=== PATIENT | male | born 1970 | race Caucasian/White ===

== ENCOUNTER 2021-09-27 16:43 | Inpatient (IN) | payer MEDICAID, SELFPAY ==
[~2021-09-27] VITALS: Ht 172.7 cm; Wt 72.6 kg
[2021-09-27] VITALS (7 sets, daily range): BP systolic 99–127
--- NOTE | 2021-09-27 16:50 | NUR ---
RECEIVED PT IN BED #4, FROM HOME WITH CC OF NAUSEA, VOMITING AND HIGH BLOOD SUGAR PER PT. PT STATED HE LOST HIS JOB AND NEEDED SOME INSULIN HE RAN OUT. PT IS STABLE, NAD, VSS, AAOx3, TO BE FURTHER ASSESSED BY ED MD
--- NOTE | 2021-09-27 16:55 | NUR ---
ED MD AT BEDSIDE
[2021-09-27] MEDS ORDERED: NACL 0.9% 1,000 ML IV ONE (17:00)
[2021-09-27] MEDS ORDERED: INSULIN REGULAR, HUMAN 100 UNITS in NS 99 ML IV ONE ×2 (17:15)
[2021-09-27] MEDS ORDERED: INSULIN REGULAR, HUMAN 10 UNITS/0.1 ML INJ IVP ONE (17:15)
[2021-09-27] MEDS ORDERED: NACL 0.9% 3,000 ML IV ONE (17:15)
[2021-09-27 17:21] LABS: BASOPHILS % (AUTO) 0.4 % (0.0-2.0); EOSINOPHILS # (AUTO) 0.1 K/uL (0.0-0.4); HEMATOCRIT 44.3 % (36-54); LYMPHOCYTES # (AUTO) 1.2 K/uL (1.0-5.5); MEAN CORPUSCULAR HEMOGLOBIN 34 pg (27-31); MEAN CORPUSCULAR HGB CONC 34 % (32-36); MEAN CORPUSCULAR VOLUME 100 fL (79.0-98.0); MONOCYTES # (AUTO) 0.5 K/uL (0.0-1.0); MONOCYTES % (AUTO) 6.7 % (1.7-9.3); NEUTROPHILS # (AUTO) 5.8 K/uL (1.8-7.7); NEUTROPHILS % (AUTO) 75.9 % (40.0-70.0); PLATELET COUNT (AUTO) 433 K/uL (130-430); RED BLOOD CELL COUNT(AUTO) 4.42 MIL/uL (4.2-6.2); WHITE BLOOD COUNT (AUTO) 7.7 K/uL (4.8-10.8)
[2021-09-27 17:33] LABS: INR 0.9 (0.80-1.20); PROTHROMBIN TIME 9.3 SECS (9.5-12.5)
[2021-09-27 17:41] LABS: ALANINE AMINOTRANSFERASE 104 U/L (12-78); ALBUMIN 4.2 g/dL (3.4-4.8); ANION GAP 31 (5-15); ASPARTATE AMINOTRANSFERASE 54 U/L (10-37); CALCIUM 9.8 mg/dL (8.4-11.0); CHLORIDE 88 mmol/L (98-107); SODIUM SERUM 127 mmol/L (136-145); TOTAL BILIRUBIN 0.8 mg/dL (0.0-1.0); UREA NITROGEN, BLOOD 23 mg/dL (8-21)
[2021-09-27 17:45] LABS: GFR AFRICAN AMERICAN 69 mL/min (>90); GLUCOSE 547 mg/dL (70-99)
[2021-09-27 17:46] LABS: POTASSIUM 5.2 mmol/L (3.5-5.1)
[2021-09-27] MEDS ORDERED: ONDANSETRON HCL 4 MG/2 ML VIAL ONE (18:05)
[2021-09-27] MEDS ORDERED: CALCIUM GLUCONATE 1 GM/10 ML VIAL IVP ONE (18:15)
[2021-09-27] MEDS ORDERED: SODIUM POLYSTYRENE SULFONATE 15 GM/60 ML UDBTL PO ONE (18:15)
[2021-09-27] MEDS ORDERED: ONDANSETRON HCL 4 MG/2 ML VIAL IVP ONE (18:15)
[2021-09-27] MEDS ORDERED: SODIUM BICARBONATE 8.4% VIAL 50 MEQ/50 ML VIAL INJ ONE (18:15)
--- NOTE | 2021-09-27 18:30 | NUR ---
MULTIPLE IVs STARTED, INSULIN DRIP STARTED, IV SODIUM BICARB GIVEN, CALCIUM GLUCONATE DRIP STARTED, AND SODIUM BICARB DRIP. PT IS STABLE, NAD, VSS, AAOx3, AWAITING TRANSPORT TO THE FLOOR.
[2021-09-27] MEDS ORDERED: CALCIUM GLUCONATE 4.65 MEQ in NS 100 ML IV ONE (18:45)
[2021-09-27] MEDS: SODIUM BICARBONATE 8.4% JECT 150 MEQ in D5W 1,000 ML IVP SCH (18:46)
--- NOTE | 2021-09-27 18:52 | NUR ---
Admit bed requested Patient will be admitted to care of . Admitted to ICU unit. Diagnosis DKA Inpatient (Yes or No) YES Covid Status PENDING From Home (Yes or if No enter name of facility) YES
--- NOTE | 2021-09-27 19:30 | NUR ---
REPORT GIVEN TO MALGORZATA MELCHOR. PT TRANSFER STABLE, NO COMPLAINTS, TOLERATED WELL. IVs INFUSING.
--- NOTE | 2021-09-27 19:30 | NUR ---
Opening notes Received report from the STREET PHOTOGRAPHER for continuity of care. Patient was transferred from the ER to ICU in no signs of distress. Patient has IV access on the left and right AC 20 gauge. Patient was transferred to the bed safely with IVF NS bolus, sodium bicarbonate 125 mL/hr, and insulin drip @ 7 unit/hr. Patient is AAOx4 with clear speech. Patient's vital signs blood pressure 127/73, heart rate 83, and SPO2 99%, room air. Bed is locked and in lowest position, fall and safety precautions is in place.
--- NOTE | 2021-09-27 20:38 | NUR ---
BLOOD SUGAR Checked patient's blood sugar. Blood sugar is 222, titrated insulin drip to 2 units.
[2021-09-27] MEDS ORDERED: INSULIN REGULAR, HUMAN 100 UNITS in NS 99 ML IV PRN ×2 (21:15)
--- NOTE | 2021-09-27 21:27 | NUR ---
CONSULTS PAGED 2126 - DR. RICHARDS - SPOKE WITH MICHAELA AT THE EXCHANGE TO LEAVE MESSAGE FOR NEW AM CONSULT. 2131 - DR. CROUCH - SPOKE WITH KRISHNA AT THE EXCHANGE TO LEAVE MESSAGE FOR NEW AM CONSULT.
[2021-09-28] VITALS (12 sets, daily range): BP systolic 91–115
[2021-09-28] MEDS ORDERED: SODIUM BICARBONATE 8.4% JECT 50 MEQ/50 ML SYRINGE ONE (05:25)
[2021-09-28] MEDS: SODIUM BICARBONATE 8.4% JECT 150 MEQ in D5W 1,000 ML IVP SCH (05:39)
[2021-09-28 06:44] LABS: BASOPHILS % (AUTO) 0.5 % (0.0-2.0); EOSINOPHILS # (AUTO) 0.1 K/uL (0.0-0.4); EOSINOPHILS % (AUTO) 1.7 % (0.0-4.0); HEMATOCRIT 35.2 % (36-54); HEMOGLOBIN 12.1 g/dL (14.0-18.0); LYMPHOCYTES # (AUTO) 1.2 K/uL (1.0-5.5); MEAN CORPUSCULAR HEMOGLOBIN 33 pg (27-31); MEAN CORPUSCULAR HGB CONC 34 % (32-36); MEAN CORPUSCULAR VOLUME 96 fL (79.0-98.0); MONOCYTES # (AUTO) 0.5 K/uL (0.0-1.0); MONOCYTES % (AUTO) 7.5 % (1.7-9.3); NEUTROPHILS # (AUTO) 4.7 K/uL (1.8-7.7); NEUTROPHILS % (AUTO) 71.3 % (40.0-70.0); PLATELET COUNT (AUTO) 286 K/uL (130-430); RED BLOOD CELL COUNT(AUTO) 3.68 MIL/uL (4.2-6.2); RED CELL DISTRIBUTION WIDTH 13.4 % (9.0-15.0); WHITE BLOOD COUNT (AUTO) 6.5 K/uL (4.8-10.8)
--- NOTE | 2021-09-28 06:50 | NUR ---
Dr. Tam is at the bedside assessing the patient, verbal report given. No new orders given.
[2021-09-28 06:56] LABS: ALBUMIN 2.9 g/dL (3.4-4.8); CALCIUM 8.6 mg/dL (8.4-11.0); CREATININE 0.97 mg/dL (0.55-1.30); POTASSIUM 3.4 mmol/L (3.5-5.1); TOTAL BILIRUBIN 0.6 mg/dL (0.0-1.0)
--- NOTE | 2021-09-28 07:50 | NUR ---
AM ASSESSMENT PT ON INSULIN DRIP AT 3 UNIT/HR, ALERT, ORIENTED, DENIES BODY DISCOMFORT, TRAY SERVED FOR BREAKFAST, PT VERBALIZED BASIC NEEDS AND ATTENDED, CONTINUE TO MONITOR PT.
[2021-09-28] MEDS ORDERED: MUPIROCIN 2% TOPICAL OINTMENT 22 GM NS PRN (08:15)
[2021-09-28] MEDS ORDERED: DOCUSATE SODIUM 100 MG CAPSULE PO PRN (08:15)
[2021-09-28] MEDS ORDERED: ONDANSETRON HCL 4 MG/2 ML VIAL IVP PRN (08:15)
[2021-09-28] MEDS ORDERED: ACETAMINOPHEN 325 MG TABLET PO PRN (08:15)
[2021-09-28] MEDS ORDERED: MAGNESIUM SULFATE 50 ML IV PRN (08:15)
[2021-09-28] MEDS ORDERED: POTASSIUM CHLORIDE 20 MEQ TAB.PRT.SR PO PRN (08:15)
[2021-09-28] MEDS ORDERED: COMMUNICATION ORDER XX ONE (10:45)
[2021-09-28] MEDS ORDERED: INSULIN LISPRO SLIDING SCALE 100 UNITS/ML VIAL (humaLOG) SUBCUT PRN ×2 (10:45→11:45)
[2021-09-28] MEDS ORDERED: INSULIN NPH 100 UNITS/ML 10 ML VIAL SUBCUT ONE (10:45)
--- NOTE | 2021-09-28 11:00 | NUR ---
MEDS. PT TO BE ON NPH INSULIN, HE STATED THAT HE HAD TAKEN THAT BEFORE BUT DID NOT DO ANYTHING TO HIS BODY. CALLED UP DR AMBROSE AND REPORTED THAT PT DID NOT BELIEVE THAT THIS WILL WORK FOR HIS DIABETES, HE PREFERRED TO USE REGULAR INSULIN. WENT TO SPEAK TO PATIENT AND GIVEN HIM THE PLAN OF CARE OF DR GOEL TO MANAGE HIS DIABETES, PT AGREED TO THE PLAN.
--- NOTE | 2021-09-28 15:54 | NUR ---
Lacrosse Player [employer] OFFICER Una responded to a referral for social service support generated from Case management DC assessment [employer] OFFICER Una met with patient at bedside. NAV[employer]SP[employer] OFFICER completed introductions and reason for referral. Patient was laying bed, alert and orientated x4. He stated he was open to talking Patient stated he is currently living in his RV with his girlfriend Nena Cason . Social History- Patient resides with his girlfriend and their pets. He shared he has family, and will stay with them for short periods of time. He shared he was previously employed as a [employer], but lost his job in October 2020. Medical Care- Patient shared he has been rationing his diabetes meds due to high cost and lack of medical insurance. He shared his medical insurance from his former employer was only valid till the end of 2020. He shared he applied for medi-norris in July but was denied. Mental Health- He denies any previous mental health diagnosis, and declined mental health resources NAVY AIRSP[employer] OFFICER encouraged patient to utilize [facility] and low cost clinic resources to establish a PCP to address his health needs. Patient was provided with the following resources -Outpatient health clinic list ([place] and [facility]) - Diabetes Resource list - Interim housing list - [facility] [facility] [place] - Homelessness Prevention Program
--- NOTE | 2021-09-28 16:26 | NUR ---
Production Gear Cutter LISSETTE Una contacted [facility] to inquire into status of patient's Medi-norris application so that the patient can be notified of any needed documents. A voicemail was left requesting a call back.
--- NOTE | 2021-09-28 17:00 | NUR ---
NURSING PT MADE AWARE OF STATUS CHANGE. WILL TRANSFER PT TO MED SURG DEPT [facility].
[2021-09-28 17:31] LABS: BLOOD, URINE NEGATIVE (NEGATIVE); CLARITY/URINE CLOUDY (CLEAR); COLOR,URINE YELLOW (YELLOW); GLUCOSE,URINE TRACE (NEGATIVE); KETONES,URINE 1+ (NEGATIVE); LEUKOCYTE ESTERASE ,URINE NEGATIVE (NEGATIVE); NITRITE, URINE NEGATIVE (NEGATIVE); PH,URINE 6.5 (5.0-8.0); PROTEIN URINE 1+ (NEGATIVE)
[2021-09-28] MEDS: INSULIN NPH 100 UNITS/ML 10 ML VIAL SUBCUT SCH (17:45)
[2021-09-28] MEDS: INSULIN Lispro 100 UNITS/ML VIAL (humaLOG) SUBCUT SCH (17:46)
[2021-09-28 17:50] LABS: BARBITURATE, URINE NEGATIVE (NEG <=200); BENZODIAZEPINE, URINE NEGATIVE (NEG <=150); CANNABINOID, URINE POSITIVE (NEG <=50); COCAINE, URINE NEGATIVE (NEG <=150); METHAMPHETAMINES SCREEN,URINE NEGATIVE (NEG <=500); OPIATE, URINE NEGATIVE (NEG <=100); PHENCYCLIDINE SCREEN,URINE NEGATIVE (NEG <=25); UR TRICYCLIC ANTIDEPRESSANTS NEGATIVE (NEG <=300); URINE AMPHETAMINE NEGATIVE (NEG <=500); URINE METHADONE NEGATIVE (NEG <=200); URINE OXYCODONE SCREEN NEGATIVE (NEG <=100); URINE PROPOXYPHENE SCREEN NEGATIVE (NEG <=300)
[2021-09-28 17:59] LABS: BILIRUBIN,URINE NEGATIVE (NEGATIVE); UROBILINOGEN,URINE >=8 (0.2-1.0)
[2021-09-28 18:01] LABS: BACTERIA,URINE FEW /HPF (None Seen); MUCUS,URINE None Seen /LPF (None Seen); OTHER CRYSTALS,URINE MANY SULFA /HPF (None Seen); RBC,URINE NONE SEEN /HPF (0-3); WBC,URINE NONE SEEN /HPF (0-3)
--- NOTE | 2021-09-28 20:30 | NUR ---
PT ADMITTED TO MED SURG. PT AOX4 ABLE TO MAKE NEEDS KNOWN. RR EVEN AND UNLABORED ON RA. PT AMBULATORY. SKIN INTACT. IV IN JASBIR AC PATENT. PT EDUCATED TO USE CALL LIGHT IF HE NEEDS ASSISTANCE. ALL NEEDS MEET AT THIS TIME. WILL CONTINUE TO MONITOR.
[2021-09-28] MEDS: ZOLPIDEM TARTRATE 5 MG TABLET PO PRN (23:00)
[2021-09-29 00:05] VITALS: BP_SYST 104
[2021-09-29] MEDS: INSULIN Lispro 100 UNITS/ML VIAL (humaLOG) SUBCUT SCH ×3 (06:42→17:00)
[2021-09-29] MEDS: INSULIN NPH 100 UNITS/ML 10 ML VIAL SUBCUT SCH (06:43)
--- NOTE | 2021-09-29 07:00 | NUR ---
pt bs 96. pt ate 2 sandwiches, 2 puddings, 1 apple juice an hour prior. pt refused any insulin at 0630
[2021-09-29 07:22] LABS: BASOPHILS % (AUTO) 0.1 % (0.0-2.0); EOSINOPHILS % (AUTO) 0.4 % (0.0-4.0); HEMATOCRIT 38.2 % (36-54); HEMOGLOBIN 13.1 g/dL (14.0-18.0); LYMPHOCYTES # (AUTO) 1.3 K/uL (1.0-5.5); LYMPHOCYTES % (AUTO) 17.1 % (20.5-51.5); MEAN CORPUSCULAR HEMOGLOBIN 33 pg (27-31); MEAN CORPUSCULAR HGB CONC 34 % (32-36); MEAN CORPUSCULAR VOLUME 96 fL (79.0-98.0); MONOCYTES # (AUTO) 0.6 K/uL (0.0-1.0); MONOCYTES % (AUTO) 8.1 % (1.7-9.3); NEUTROPHILS # (AUTO) 5.5 K/uL (1.8-7.7); NEUTROPHILS % (AUTO) 74.3 % (40.0-70.0); PLATELET COUNT (AUTO) 288 K/uL (130-430); RED BLOOD CELL COUNT(AUTO) 3.98 MIL/uL (4.2-6.2); RED CELL DISTRIBUTION WIDTH 13.5 % (9.0-15.0); WHITE BLOOD COUNT (AUTO) 7.4 K/uL (4.8-10.8)
[2021-09-29 08:00] VITALS: BP_SYST 103
[2021-09-29] MEDS: INSULIN GLARGINE 100 UNITS/ML 10 ML VIAL SUBCUT SCH ×2 (09:38→20:39)
[2021-09-29 10:01] LABS: CALCIUM 7.7 mg/dL (8.4-11.0); CREATININE 0.79 mg/dL (0.55-1.30); POTASSIUM 3.2 mmol/L (3.5-5.1)
[2021-09-29] MEDS: LORazepam 2 MG/ML VIAL IVP PRN ×3 (12:11→21:20)
--- NOTE | 2021-09-29 12:21 | NUR ---
PT C/O ANXIETY, MEDICATED WITH PRN ATIVAN PER MD ORDER. ADMINISTERED PRN POTASSIUM FOR K+ 3.2. PT EATING LUNCH, DENIES PAIN/DISCOMFORT. CALL LIGHT IN REACH, SAFETY MEASURES IN PLACE. Addendum: 09/29/21 at 1225 by [place] [employer] yarn sizer HELD LISPRO, BG 82. PATIENT PROVIDED LUNCH, DENIES S/S OF HYPOGLYCEMIA.
[2021-09-29 12:26] VITALS: BP_SYST 99
[2021-09-29 16:00] VITALS: BP_SYST 100
--- NOTE | 2021-09-29 18:45 | NUR ---
PATIENT IS RESTING IN BED, AAO x4, DENIES PAIN/DISCOMFORT. RESPIRATIONS EVEN AND UL ON RA. SL TO LAC, INTACT AND PATENT, WNL. ALL NEEDS MET. NO SIGNIFICANT CHANGES NOTED. BED IN LOWEST POSITION, CALL LIGHT IN REACH, WILL CONT TO MONITOR AND ENDORSE TO PM NURSE.
--- NOTE | 2021-09-29 19:15 | NUR ---
REPORT GIVEN TO PM NURSE FOR CONTINUITY OF CARE.
--- NOTE | 2021-09-29 20:39 | NUR ---
PT REFUSED HUMULIN R. BLOOD SUGAR 182. WILL GIVE LANTUS 15UNITS.
[2021-09-29 20:56] VITALS: BP_SYST 103
[2021-09-29] MEDS: ZOLPIDEM TARTRATE 5 MG TABLET PO PRN (21:12)
[2021-09-29] MEDS ORDERED: INSU100V SQ (22:53)
[2021-09-29] MEDS ORDERED: INSU100V9 SQ (22:53)
[2021-09-30] VITALS: BP_SYST 99
[2021-09-30] MEDS: INSULIN Lispro 100 UNITS/ML VIAL (humaLOG) SUBCUT SCH ×3 (07:23→17:00)
[2021-09-30 08:00] VITALS: BP_SYST 102
--- NOTE | 2021-09-30 08:00 | NUR ---
RECEIVED REPORT FROM PM NURSE, PATIENT IS RESTING IN BED, AAO x4, DENIES PAIN/DISCOMFORT. RESPIRATIONS EVEN AND UL ON RA. SL TO LAC, IV SITE WNL. SAFETY MEASURES IN PLACE, CALL LIGHT WITHIN REACH. ALL NEEDS MET AT THIS TIME.
[2021-09-30 08:33] LABS: CALCIUM 8.3 mg/dL (8.4-11.0); CREATININE 0.66 mg/dL (0.55-1.30)
[2021-09-30] MEDS: LORazepam 2 MG/ML VIAL IVP PRN (08:57)
[2021-09-30 09:02] LABS: BASOPHILS % (AUTO) 0.5 % (0.0-2.0); EOSINOPHILS # (AUTO) 0.2 K/uL (0.0-0.4); EOSINOPHILS % (AUTO) 4.7 % (0.0-4.0); HEMATOCRIT 35.1 % (36-54); HEMOGLOBIN 11.8 g/dL (14.0-18.0); LYMPHOCYTES # (AUTO) 1.6 K/uL (1.0-5.5); LYMPHOCYTES % (AUTO) 37.2 % (20.5-51.5); MEAN CORPUSCULAR HEMOGLOBIN 33 pg (27-31); MEAN CORPUSCULAR HGB CONC 34 % (32-36); MEAN CORPUSCULAR VOLUME 98 fL (79.0-98.0); MONOCYTES # (AUTO) 0.3 K/uL (0.0-1.0); MONOCYTES % (AUTO) 6.4 % (1.7-9.3); NEUTROPHILS # (AUTO) 2.3 K/uL (1.8-7.7); NEUTROPHILS % (AUTO) 51.2 % (40.0-70.0); PLATELET COUNT (AUTO) 205 K/uL (130-430); RED BLOOD CELL COUNT(AUTO) 3.59 MIL/uL (4.2-6.2); RED CELL DISTRIBUTION WIDTH 13.3 % (9.0-15.0); WHITE BLOOD COUNT (AUTO) 4.4 K/uL (4.8-10.8)
[2021-09-30] MEDS: INSULIN GLARGINE 100 UNITS/ML 10 ML VIAL SUBCUT SCH (09:04)
[2021-09-30 09:22] LABS: POTASSIUM 3.7 mmol/L (3.5-5.1)
[2021-09-30 12:00] VITALS: BP_SYST 105
--- NOTE | 2021-09-30 12:00 | NUR ---
ERROR, PT IS ON ROOM AIR. Addendum: 09/30/21 at 1231 by [place] crew caller Amended: Links added.
--- NOTE | 2021-09-30 17:49 | NUR ---
Dietitian Recommendations * Continue [facility] diet * HS snacks (turkey sandwich, 4 oz milk) daily * Double portions of proteins/vegetables TID * RD provided DM MIRANDAT ANA PAULA, JAKE Please refer to Nutrition Assessment for details. Addendum: 09/30/21 at [address] Amended: Links added.
[2021-09-30 17:56] VITALS: BP_SYST 122
[2021-09-30 18:37] VITALS: BP_SYST 122
--- NOTE | 2021-09-30 18:59 | NUR ---
DISCHARGE INSTRUCTIONS GIVEN AND EXPLAINED TO PATIENT, PRESCRIPTIONS GIVEN TO PATIENT. PATIENT VERBALIZED UNDERSTANDING OF ALL DISCHARGE INSTRUCTIONS/EDUCATION/PRESCRIPTIONS/FOLLOW UP APPT. PT STATES HE WILL GO TO PHARMACY TONIGHT TO DIRECTORY COMPILER PRESCRIPTIONS. IV SITE TO LAC REMOVED, CATH INTACT, NO BLEEDING NOTED. TRANSPORTATION SCHEDULED WITH PASTE MAKER AND TRANSPORT WILL ARRIVE TO PICK PATIENT UP AT [phone]. PT MADE AWARE. SIGNED DISCHARGE PACKET PLACED IN CHART. PT INSTRUCTED TO TAKE MEDICATIONS DIRECTED AND FOLLOW UP WITH PCP IN 3 DAYS. PATIENT RESTING IN BED, AAO x4, RESPIRATIONS EVEN AND UL ON RA, DENIES PAIN/DISCOMFORT. WILL ENDORSE TO PM NURSE.
--- NOTE | 2021-09-30 19:25 | NUR ---
PATIENT DISCHARGED HOME WITH ALL BELONGINGS.
[2021-09-30] MEDS ORDERED: INSULIN GLARGINE 100 UNITS/ML 10 ML VIAL SUBCUT SCH (21:00)
== END 2021-09-30 19:25 | disposition home or self-care (01) | DRG 420 ==
LOC: SED 16:43 → SIC 18:48 → SMU 09-28 17:48
PROVIDERS: ADMIT General Practice; ATTEND General Practice
DX: E11.10 Type 2 diabetes mellitus with ketoacidosis without coma (principal); N17.0 Acute kidney failure with tubular necrosis; E87.1 Hypo-osmolality and hyponatremia; E87.5 Hyperkalemia; T38.3X6A Underdosing of insulin and oral hypoglycemic [antidiabetic] drugs, initial encounter; Z20.822 Contact with and (suspected) exposure to COVID-19; R74.01 Elevation of levels of liver transaminase levels; E11.649 Type 2 diabetes mellitus with hypoglycemia without coma; Y92.89 Other specified places as the place of occurrence of the external cause; Z83.3 Family history of diabetes mellitus; Z56.0 Unemployment, unspecified; Z79.4 Long term (current) use of insulin
CPT/HCPCS: 36415; 36600; 71045; 80048; 80053; 80307; 81000; 82803-TC; 82962; 83036; 83605; 83735; 84484; 85025; 85610-TC; 85730-TC; 87040; 87081; 93005; 96374; 96375; 99285; J0610; J1815; J2060; J2405; J7060

== ENCOUNTER 2021-11-12 20:08 | Inpatient (IN) | payer SELFPAY ==
[~2021-11-12] VITALS: Ht 172.7 cm; Wt 63.0 kg
[~2021-11-12 20:08] MED LIST: INSU100V SQ; INSU100V9 SQ
[2021-11-12 20:20] VITALS: BP_SYST 100
--- NOTE | 2021-11-12 20:22 | NUR ---
Patient to ER bed 8 to gown for evaluation. Side rails up. Report given to Jamil MCGARRY.
--- NOTE | 2021-11-12 20:55 | NUR ---
pt presented to the er with complaints of nausea, vomitting and abdominal pain 11/13. pt was driven to er by friend from home. pt vomitted dark brown/moira emisis upon i entered room. pt last meal was humus and pizza last night. pt has hx of dm takes insulin. glucose reading was +600 at 19:09
[2021-11-12 21:06] LABS: BASOPHILS # (AUTO) 0.1 K/uL (0.0-0.2); BASOPHILS % (AUTO) 0.8 % (0.0-2.0); EOSINOPHILS % (AUTO) 0.1 % (0.0-4.0); HEMATOCRIT 47.3 % (36-54); HEMOGLOBIN 15.6 g/dL (14.0-18.0); LYMPHOCYTES # (AUTO) 1.3 K/uL (1.0-5.5); LYMPHOCYTES % (AUTO) 7.2 % (20.5-51.5); MEAN CORPUSCULAR HEMOGLOBIN 33 pg (27-31); MEAN CORPUSCULAR HGB CONC 33 % (32-36); MEAN CORPUSCULAR VOLUME 99 fL (79.0-98.0); MONOCYTES # (AUTO) 0.8 K/uL (0.0-1.0); MONOCYTES % (AUTO) 4.7 % (1.7-9.3); NEUTROPHILS # (AUTO) 15.4 K/uL (1.8-7.7); NEUTROPHILS % (AUTO) 87.2 % (40.0-70.0); PLATELET COUNT (AUTO) 374 K/uL (130-430); RED BLOOD CELL COUNT(AUTO) 4.78 MIL/uL (4.2-6.2); RED CELL DISTRIBUTION WIDTH 13.4 % (9.0-15.0); WHITE BLOOD COUNT (AUTO) 17.7 K/uL (4.8-10.8)
[2021-11-12] MEDS ORDERED: ONDANSETRON HCL 4 MG/2 ML VIAL IVP ONE (21:15)
[2021-11-12] MEDS ORDERED: NACL 0.9% 1,000 ML IV ONE (21:15)
[2021-11-12] MEDS ORDERED: ONDANSETRON HCL 4 MG/2 ML VIAL ONE (22:01)
--- NOTE | 2021-11-12 22:01 | NUR ---
Dr. Alvarado at bedside. Second dose of Zofran 4 mg IVP given per VO Dr. Alvarado.
[2021-11-12 22:06] LABS: BILIRUBIN,URINE 1+ (NEGATIVE); BLOOD, URINE NEGATIVE (NEGATIVE); CLARITY/URINE CLEAR (CLEAR); COLOR,URINE YELLOW (YELLOW); GLUCOSE,URINE 3+ (NEGATIVE); KETONES,URINE 3+ (NEGATIVE); LEUKOCYTE ESTERASE ,URINE NEGATIVE (NEGATIVE); NITRITE, URINE NEGATIVE (NEGATIVE); PH,URINE 5.5 (5.0-8.0); PROTEIN URINE NEGATIVE (NEGATIVE); UROBILINOGEN,URINE 0.2 (0.2-1.0)
[2021-11-12] MEDS ORDERED: PANTOPRAZOLE SODIUM 40 MG/VIAL (PROTONIX) IVP ONE (22:15)
[2021-11-12 23:07] LABS: POTASSIUM 5.9 mmol/L (3.5-5.1)
[2021-11-12 23:09] LABS: CALCIUM 10.1 mg/dL (8.4-11.0)
[2021-11-12 23:10] LABS: ALBUMIN 4.6 g/dL (3.4-4.8); CREATININE 1.8 mg/dL (0.55-1.30); TOTAL BILIRUBIN 0.7 mg/dL (0.0-1.0)
[2021-11-12] MEDS ORDERED: INSULIN REGULAR, HUMAN 100 UNITS in NS 99 ML IV ONE ×2 (23:15)
[2021-11-12] MEDS ORDERED: INSULIN REGULAR, HUMAN 10 UNITS/0.1 ML INJ ONE (23:28)
[2021-11-13] VITALS (20 sets, daily range): BP systolic 104–133
[2021-11-13] MEDS ORDERED: METOCLOPRAMIDE HCL 10 MG/2 ML VIAL IVP ONE
[2021-11-13] MEDS ORDERED: DEXTROSE 50% JECT 50 ML DISP.SYRIN IVP PRN (00:30)
[2021-11-13] MEDS ORDERED: INSULIN REGULAR, HUMAN 100 UNITS in NS 99 ML IV PRN ×6 (00:30→03:30)
[2021-11-13] MEDS ORDERED: INSU100V SQ (01:02)
[2021-11-13] MEDS ORDERED: INSU100V9 SQ (01:02)
--- NOTE | 2021-11-13 01:08 | NUR ---
checked pt glucose reading at bed side. glucometer still giving reading of "high" indicating a 600+glucose reading. provided Dr Leung with reading information recieved verbal order from Dr Leung to continue on 4ml/hr drip of insulin. will recheck glucose in 1 hour. pt resting in bed with eyes closed, bed is lowered and locked and rails are up
--- NOTE | 2021-11-13 01:20 | NUR ---
Admit bed requested Patient will be admitted to care of Dr. Palma. Admitted to ICU unit. Diagnosis DKA Inpatient (Yes or No) NO Observation (Yes or No) NO Orientation concerns or request close to nursing station (Yes or No) NO Covid Status NEGATIVE On vent or bipap NO Isolation requirements NO Needs a sitter NO From Home (Yes or if No enter name of facility) YES Requires Dialysis (Yes or No) NO Med Rec Completed (Yes of No) YES
--- NOTE | 2021-11-13 02:08 | NUR ---
Blood sugar 453 mg/dL. Insulin drip rate increased to 5 Units/hr per protocol. Pt resting quietly, easily awakened, AAOx4. Denies c/o pain or discomfort and no needs verbalized at this time. VSS, NAD. 750 mL clear and yellow urine emptied from urinal.
--- NOTE | 2021-11-13 02:50 | NUR ---
assessed pt vitals signs, pt is sleeping in bed, vs within normal limits. unable to assess pt pain bcs pt is asleep and resting. bed is lowered and locked with bed rails up. will continue to monitor
--- NOTE | 2021-11-13 03:10 | NUR ---
Accucheck 422 mg/dL. Insulin Drip rate increased to 7 Units/hr per Insulin Drip Protocol Algorithm #2.
--- NOTE | 2021-11-13 04:19 | NUR ---
assessed pt. blood glucose 390 continued on protocol. no acute changes in pt vital signs. vitals are within normal limits. pt in bed resting comfortably with bed lowered and locked, rails up. pt denies pain. AOx3
--- NOTE | 2021-11-13 04:46 | NUR ---
Note fritz in EDM - 11/13/21 at 0639 by JOSE ANTONIOJ Patient will be admitted to care of Dr. Palma. Admitted to ICU unit. Will go to room 1. Belongings list completed. Complete and up to date summary report printed. SBAR report to be given at bedside with opportunity for questions.
--- NOTE | 2021-11-13 05:00 | NUR ---
0500 ADMITTED PT FROM ER FOR DKA A&OX4 AMBULATORY ON ROOM AIR SKIN INTACT, WITH INSULIN DRIP RUNNING AT 6 UNITS VIA LT AC. CONNECTED TO BEDSIDE MONITOR, AND CHG BATH DONE, BS CHECKED 387-DUE COVERGAE GIVEN.
--- NOTE | 2021-11-13 05:18 | NUR ---
Patient will be admitted to care of Dr Palma . Admitted to ICU unit. Will go to room 1. Belongings list completed. Complete and up to date summary report printed. SBAR report to be given to MALGORZATA Antonio at bedside with opportunity for questions.
[2021-11-13] MEDS ORDERED: MAGNESIUM SULFATE 50 ML IV PRN (06:15)
[2021-11-13] MEDS ORDERED: MUPIROCIN 2% TOPICAL OINTMENT 22 GM NS PRN (06:15)
[2021-11-13] MEDS ORDERED: ONDANSETRON HCL 4 MG/2 ML VIAL IVP PRN (06:15)
[2021-11-13] MEDS ORDERED: LORazepam 2 MG/ML VIAL IVP PRN (06:15)
[2021-11-13] MEDS ORDERED: NALOXONE HCL 0.4 MG/ML AMP (NARCAN) IVP PRN ×2 (06:15)
[2021-11-13] MEDS ORDERED: ACETAMINOPHEN 325 MG TABLET PO PRN (06:15)
[2021-11-13] MEDS ORDERED: DOCUSATE SODIUM 100 MG CAPSULE PO PRN (06:15)
[2021-11-13] MEDS ORDERED: MORPHINE 2 MG/ML INJ. SYRINGE IVP PRN ×2 (06:15)
[2021-11-13] MEDS ORDERED: ZOLPIDEM TARTRATE 5 MG TABLET PO PRN (06:15)
[2021-11-13] MEDS ORDERED: POTASSIUM CHLORIDE 20 MEQ TAB.PRT.SR PO PRN (06:15)
[2021-11-13] MEDS: NACL 0.9% 1,000 ML IV SCH ×3 (06:55→16:50)
--- NOTE | 2021-11-13 06:57 | NUR ---
0610 S/B DR RAY CLARIFIED HIS ORDER OF DKA PROTOCOL OF NO FLUIDS,LABS AND ON A DIET PT ON INSULIN DRIP AND HE SAID [facility]. QUESTIONING ME WHY NO LABS OREDERED AND TOLD HIM I AM NOT THE ONE WHO GET HIS ORDER IN ER PATIENT JUST ROLLED IN JUST AN HOUR AGO AND HE JUST LITERALLY SETTLED COMFORTABLY IN BED . WENT AND SEE PATIENT AND PUT HIS ORDER IN.
[2021-11-13 07:12] LABS: CREATININE 1.86 mg/dL (0.55-1.30); POTASSIUM 4.3 mmol/L (3.5-5.1)
[2021-11-13 07:17] LABS: BASOPHILS # (AUTO) 0.1 K/uL (0.0-0.2); BASOPHILS % (AUTO) 0.4 % (0.0-2.0); HEMATOCRIT 45.5 % (36-54); HEMOGLOBIN 15.7 g/dL (14.0-18.0); LYMPHOCYTES # (AUTO) 1.6 K/uL (1.0-5.5); LYMPHOCYTES % (AUTO) 10.7 % (20.5-51.5); MEAN CORPUSCULAR HEMOGLOBIN 33 pg (27-31); MEAN CORPUSCULAR HGB CONC 35 % (32-36); MEAN CORPUSCULAR VOLUME 95 fL (79.0-98.0); MONOCYTES # (AUTO) 0.8 K/uL (0.0-1.0); MONOCYTES % (AUTO) 5.2 % (1.7-9.3); NEUTROPHILS # (AUTO) 12.7 K/uL (1.8-7.7); NEUTROPHILS % (AUTO) 83.7 % (40.0-70.0); PLATELET COUNT (AUTO) 371 K/uL (130-430); RED BLOOD CELL COUNT(AUTO) 4.79 MIL/uL (4.2-6.2); RED CELL DISTRIBUTION WIDTH 13.1 % (9.0-15.0); WHITE BLOOD COUNT (AUTO) 15.2 K/uL (4.8-10.8)
--- NOTE | 2021-11-13 07:17 | NUR ---
REPORT TO LENA MCGARRY FOR CONTINUITY OF CARE.
--- NOTE | 2021-11-13 07:36 | NUR ---
INITIAL SHIFT REPORT RECEIVED FROM NIGHT RN FOR CONTINUATION OF CARE
[2021-11-13] MEDS: PIPERACILLIN/TAZO 3.375/DEX-IS 50 ML IV SCH ×4 (07:49→23:25)
--- NOTE | 2021-11-13 08:50 | NUR ---
UPDATE INFORMED MD EARL-SAYED OF PT'S CO2 23, BS 340. PER MD EARL-SAYED CONTINUE INSULIN DRIP OF 5U/HR.
[2021-11-13] MEDS: HEPARIN SODIUM,PORCINE 5,000 UNITS/ML VIAL SUBCUT SCH ×2 (09:20→23:27)
[2021-11-13 11:59] LABS: CALCIUM 8.6 mg/dL (8.4-11.0); CREATININE 1.46 mg/dL (0.55-1.30); POTASSIUM 4.5 mmol/L (3.5-5.1)
--- NOTE | 2021-11-13 12:29 | NUR ---
HIGH ALERT NOTE: Called Dr. EARL-SAYED back at identified within the medical roster to verify physician authenticity; 25U OF NPH INSULIN ORDERED
[2021-11-13] MEDS ORDERED: INSULIN NPH 100 UNITS/ML 10 ML VIAL SUBCUT ONE (13:00)
[2021-11-13] MEDS ORDERED: INSULIN LISPRO SLIDING SCALE 100 UNITS/ML VIAL (humaLOG) SUBCUT PRN (14:30)
--- NOTE | 2021-11-13 16:59 | NUR ---
ASSESSED DR EARL-SAYED AT THE PT'S BEDSIDE. ASSESSED & ORDERED TO TURN OFF INSULIN DRIP. BS CHECKED AT 1600 & MD ASKED TO DISREGARD BS CHECK AT 1700.
--- NOTE | 2021-11-13 19:11 | NUR ---
Assumed pt care report received from Evelia MCGARRY. Updates at the bedside met pt awake alert oriented vital signs stable afebrile denies pain, education on care plan, he verbalized understanding call light at reach and bed in low position. Will continue to monitor and treat as per care plan.
--- NOTE | 2021-11-13 19:22 | NUR ---
ENDORSEMENT BEDSIDE SHIFT REPORT GIVEN TO NIGHT RN FOR CONTINUITY OF CARE
[2021-11-13] MEDS: INSULIN NPH 100 UNITS/ML 10 ML VIAL SUBCUT SCH (21:54)
[2021-11-14] VITALS (13 sets, daily range): BP systolic 100–121
[2021-11-14 00:11] LABS: BARBITURATE, URINE NEGATIVE (NEG <=200); BENZODIAZEPINE, URINE NEGATIVE (NEG <=150); CANNABINOID, URINE NEGATIVE (NEG <=50); COCAINE, URINE NEGATIVE (NEG <=150); METHAMPHETAMINES SCREEN,URINE POSITIVE (NEG <=500); OPIATE, URINE NEGATIVE (NEG <=100); PHENCYCLIDINE SCREEN,URINE NEGATIVE (NEG <=25); UR TRICYCLIC ANTIDEPRESSANTS NEGATIVE (NEG <=300); URINE AMPHETAMINE POSITIVE (NEG <=500); URINE METHADONE NEGATIVE (NEG <=200); URINE OXYCODONE SCREEN NEGATIVE (NEG <=100); URINE PROPOXYPHENE SCREEN NEGATIVE (NEG <=300)
[2021-11-14] MEDS: NACL 0.9% 1,000 ML IV SCH (00:44)
[2021-11-14 05:58] LABS: BASOPHILS # (AUTO) 0.1 K/uL (0.0-0.2); BASOPHILS % (AUTO) 0.5 % (0.0-2.0); EOSINOPHILS # (AUTO) 0.2 K/uL (0.0-0.4); EOSINOPHILS % (AUTO) 1.3 % (0.0-4.0); HEMATOCRIT 38.8 % (36-54); HEMOGLOBIN 13.1 g/dL (14.0-18.0); LYMPHOCYTES # (AUTO) 2.3 K/uL (1.0-5.5); LYMPHOCYTES % (AUTO) 19.5 % (20.5-51.5); MEAN CORPUSCULAR HEMOGLOBIN 32 pg (27-31); MEAN CORPUSCULAR HGB CONC 34 % (32-36); MEAN CORPUSCULAR VOLUME 96 fL (79.0-98.0); MONOCYTES # (AUTO) 0.7 K/uL (0.0-1.0); MONOCYTES % (AUTO) 5.6 % (1.7-9.3); NEUTROPHILS # (AUTO) 8.6 K/uL (1.8-7.7); NEUTROPHILS % (AUTO) 73.1 % (40.0-70.0); PLATELET COUNT (AUTO) 254 K/uL (130-430); RED BLOOD CELL COUNT(AUTO) 4.06 MIL/uL (4.2-6.2); RED CELL DISTRIBUTION WIDTH 13.2 % (9.0-15.0); WHITE BLOOD COUNT (AUTO) 11.8 K/uL (4.8-10.8)
[2021-11-14 06:15] LABS: CREATININE 1.05 mg/dL (0.55-1.30); POTASSIUM 3.5 mmol/L (3.5-5.1)
[2021-11-14] MEDS: PIPERACILLIN/TAZO 3.375/DEX-IS 50 ML IV SCH ×2 (06:32→13:28)
[2021-11-14] MEDS: INSULIN Lispro 100 UNITS/ML VIAL (humaLOG) SUBCUT SCH ×2 (06:47→12:25)
--- NOTE | 2021-11-14 07:12 | NUR ---
Blood sugar this AM was 44, pt asymptomatic awake alert oriented D50 ivp given blood sugar rechecked 147 and breakfast provided. Also Dr Neumann SAYED notified via phone message to call the unit for pt's condition updates.
--- NOTE | 2021-11-14 07:31 | NUR ---
Change of shift report given to YENIFER RN as at this time no changes in pt's condition vitals signs stable afebrile and no complain all through the shift.
[2021-11-14] MEDS ORDERED: INSU100I20 SQ (08:46)
[2021-11-14] MEDS ORDERED: LEVO500T90 PO (08:50)
[2021-11-14] MEDS ORDERED: PRO40 PO (08:54)
[2021-11-14] MEDS ORDERED: PANTOPRAZOLE SODIUM 40 MG TAB PO SCH (09:00)
[2021-11-14] MEDS ORDERED: NACL 0.9% 1,000 ML IV SCH (09:00)
--- NOTE | 2021-11-14 09:00 | NUR ---
MD ROUNDS: SEEN BY EARLIER, DISCUSS ABOUT THE CURRENT CONDITION AND POC.
[2021-11-14] MEDS: INSULIN NPH 100 UNITS/ML 10 ML VIAL SUBCUT SCH (09:14)
[2021-11-14] MEDS: HEPARIN SODIUM,PORCINE 5,000 UNITS/ML VIAL SUBCUT SCH (09:15)
--- NOTE | 2021-11-14 10:46 | NUR ---
Patient is able to reposition self in bed and is encouraged to request assistance when needed. informed will be transfer to med/ surgical status. pt verbalized understanding.
--- NOTE | 2021-11-14 11:20 | NUR ---
Transferred patient to room 126B. belongings sent with patient, valuable at the safe. vital sign stable, afebrile. no s/s of distress. all needs mets.
--- NOTE | 2021-11-14 11:30 | NUR ---
RECEIVED PATIENT FROM ICU NURSE, TRANSPORTED VIA WHEELCHAIR AND ABLE TO SELF TRANSFER TO BED, ALERT AND ORIENTED, ABLE TO VERBALIZE NEEDS, NO C/O PAIN, NO SOB, ON RA, WILL ASSUME ALL CARE OF PATIENT
--- NOTE | 2021-11-14 16:50 | NUR ---
PATIENT DC HOME, EDUCATION PROVIDED REGARDING NEW MEDICATIONS, WHEN TO SEEK MEDICAL ATTENTION AND WHEN TO FOLLOW UP WITH APERTURE MASK ETCHER, VERBALIZED UNDERSTANDING, IV DC WITH CATHETER INTACT, RN TRANSPORTED PATIENT VIA WHEELCHAIR, PERSONAL ITEMS RETRIEVED FROM HOSPITAL SAFE, WILL TRANSPORT PATIENT VIA PRIVATE CAR,
== END 2021-11-14 16:20 | disposition home or self-care (01) | DRG 871 ==
LOC: SED 20:08 → SIC 11-13 00:20 → STU 11-14 11:12
PROVIDERS: ADMIT General Practice; ATTEND General Practice
DX: A41.9 Sepsis, unspecified organism (principal); E11.10 Type 2 diabetes mellitus with ketoacidosis without coma; N17.0 Acute kidney failure with tubular necrosis; E87.5 Hyperkalemia; Z20.822 Contact with and (suspected) exposure to COVID-19; F15.10 Other stimulant abuse, uncomplicated; I10 Essential (primary) hypertension; Z79.4 Long term (current) use of insulin; Z83.3 Family history of diabetes mellitus; Z91.19 Patient's noncompliance with other medical treatment and regimen; Z71.51 Drug abuse counseling and surveillance of drug abuser
CPT/HCPCS: 36415; 76700-TC; 80048; 80053; 80307; 81003; 82009; 82962; 83036; 83690; 83735; 85025; 85730-TC; 87081; 93005; 96361; 96365; 96375; 99291; C9113; J1644; J1815; J2405; J2543; J2765; J7030

== ENCOUNTER 2021-12-25 17:24 | Inpatient (IN) | payer SELFPAY ==
[~2021-12-25] VITALS: Ht 172.7 cm; Wt 65.8 kg
[~2021-12-25 17:24] MED LIST changes: +INSU100I20 SQ; +LEVO500T90 PO; +PRO40 PO
[2021-12-25 17:31] VITALS: BP_SYST 144
[2021-12-25] MEDS ORDERED: NACL 0.9% 3,000 ML IV ONE (18:00)
[2021-12-25 18:21] LABS: CALCIUM 8.1 mg/dL (8.4-11.0); CREATININE 4.8 mg/dL (0.55-1.30)
[2021-12-25 18:22] LABS: BASOPHILS % (AUTO) 0.2 % (0.0-2.0); HEMATOCRIT 41.8 % (36-54); HEMOGLOBIN 13.5 g/dL (14.0-18.0); LYMPHOCYTES % (AUTO) 6.5 % (20.5-51.5); MEAN CORPUSCULAR HEMOGLOBIN 32 pg (27-31); MEAN CORPUSCULAR HGB CONC 32 % (32-36); MEAN CORPUSCULAR VOLUME 100 fL (79.0-98.0); MONOCYTES # (AUTO) 1.6 K/uL (0.0-1.0); MONOCYTES % (AUTO) 10.3 % (1.7-9.3); NEUTROPHILS # (AUTO) 13.3 K/uL (1.8-7.7); PLATELET COUNT (AUTO) 352 K/uL (130-430); RED BLOOD CELL COUNT(AUTO) 4.17 MIL/uL (4.2-6.2); RED CELL DISTRIBUTION WIDTH 12.9 % (9.0-15.0)
[2021-12-25 18:23] LABS: ALBUMIN 3.6 g/dL (3.4-4.8); TOTAL BILIRUBIN 0.9 mg/dL (0.0-1.0)
[2021-12-25 18:49] LABS: POTASSIUM 6.3 mmol/L (3.5-5.1)
[2021-12-25] MEDS ORDERED: DEXTROSE 50% JECT 50 ML DISP.SYRIN IVP PRN (19:00)
[2021-12-25] MEDS ORDERED: INSULIN REGULAR, HUMAN 10 UNITS/0.1 ML INJ IVP ONE (19:00)
[2021-12-25 19:42] LABS: ACETONE, SERUM LARGE (NEGATIVE)
[2021-12-25] MEDS: INSULIN REGULAR, HUMAN 100 UNITS in NS 99 ML IV PRN ×2 (20:11)
[2021-12-25 20:40] LABS: SODIUM SERUM 117 mmol/L (136-145)
[2021-12-25 20:41] LABS: CHLORIDE 76 mmol/L (98-107); POTASSIUM 7.2 mmol/L (3.5-5.1)
[2021-12-25 20:42] LABS: ANION GAP 36 (5-15)
[2021-12-25 20:43] LABS: GLUCOSE 1300 mg/dL (70-99)
[2021-12-25 20:44] LABS: CALCIUM 6.7 mg/dL (8.4-11.0); CREATININE 4.47 mg/dL (0.55-1.30); UREA NITROGEN, BLOOD 92 mg/dL (8-21)
[2021-12-25 20:45] LABS: GFR AFRICAN AMERICAN 18 mL/min (>90); PHOSPHORUS 9.4 mg/dL (2.7-4.5)
[2021-12-25] MEDS ORDERED: POTASSIUM CHLORIDE 20 MEQ in NACL 0.9% 1,000 ML IV SCH (20:45)
[2021-12-25] MEDS ORDERED: cefTRIAXone 1 GM VIAL ONE (21:26)
[2021-12-25] MEDS: cefTRIAXone 1 GM in D5W 50 ML IV SCH (21:41)
[2021-12-25 21:58] LABS: BILIRUBIN,URINE 1+ (NEGATIVE); BLOOD, URINE 2+ (NEGATIVE); CLARITY/URINE CLEAR (CLEAR); COLOR,URINE YELLOW (YELLOW); GLUCOSE,URINE 3+ (NEGATIVE); KETONES,URINE 1+ (NEGATIVE); LEUKOCYTE ESTERASE ,URINE NEGATIVE (NEGATIVE); NITRITE, URINE NEGATIVE (NEGATIVE); PROTEIN URINE NEGATIVE (NEGATIVE); UROBILINOGEN,URINE 0.2 (0.2-1.0)
[2021-12-25 23:18] LABS: BACTERIA,URINE MODERATE /HPF (None Seen); RBC,URINE 0-3 /HPF (0-3); WBC,URINE 0-3 /HPF (0-3)
[2021-12-25 23:19] LABS: HYALINE CASTS, URINE 0-10 /LPF (None Seen)
[2021-12-25 23:49] LABS: CALCIUM 7.4 mg/dL (8.4-11.0); CREATININE 3.81 mg/dL (0.55-1.30); POTASSIUM 4.7 mmol/L (3.5-5.1)
[2021-12-26] VITALS (20 sets, daily range): BP systolic 98–133
[2021-12-26] MEDS ORDERED: INSULIN REGULAR, HUMAN 100 UNITS/ML, 10 ML VIAL IVP ONE (00:45)
[2021-12-26] MEDS ORDERED: NACL 0.9% 1,000 ML IV ONE (00:45)
[2021-12-26] MEDS ORDERED: COMMUNICATION ORDER XX ONE (00:45)
[2021-12-26] MEDS: NACL 0.9% 1,000 ML IV SCH ×4 (02:21→20:45)
[2021-12-26] MEDS ORDERED: MAGNESIUM SULFATE 50 ML IV PRN (03:30)
[2021-12-26] MEDS ORDERED: KCL 10 mEq in 50 mL (PREMIX) 50 ML IV PRN (03:30)
[2021-12-26 03:57] LABS: CALCIUM 7.6 mg/dL (8.4-11.0); CREATININE 2.68 mg/dL (0.55-1.30); POTASSIUM 3.6 mmol/L (3.5-5.1)
[2021-12-26 04:01] LABS: PHOSPHORUS 3.6 mg/dL (2.7-4.5)
[2021-12-26 07:02] LABS: EOSINOPHILS # (AUTO) 0.1 K/uL (0.0-0.4); EOSINOPHILS % (AUTO) 0.4 % (0.0-4.0); HEMATOCRIT 38.7 % (36-54); HEMOGLOBIN 13.7 g/dL (14.0-18.0); LYMPHOCYTES # (AUTO) 0.9 K/uL (1.0-5.5); LYMPHOCYTES % (AUTO) 6.1 % (20.5-51.5); MEAN CORPUSCULAR HEMOGLOBIN 32 pg (27-31); MEAN CORPUSCULAR HGB CONC 36 % (32-36); MEAN CORPUSCULAR VOLUME 91 fL (79.0-98.0); MONOCYTES # (AUTO) 1.2 K/uL (0.0-1.0); MONOCYTES % (AUTO) 8.4 % (1.7-9.3); NEUTROPHILS # (AUTO) 12.3 K/uL (1.8-7.7); NEUTROPHILS % (AUTO) 85.1 % (40.0-70.0); PLATELET COUNT (AUTO) 269 K/uL (130-430); RED BLOOD CELL COUNT(AUTO) 4.26 MIL/uL (4.2-6.2); RED CELL DISTRIBUTION WIDTH 12.7 % (9.0-15.0); WHITE BLOOD COUNT (AUTO) 14.4 K/uL (4.8-10.8)
[2021-12-26 07:29] LABS: CALCIUM 7.8 mg/dL (8.4-11.0); CREATININE 2.13 mg/dL (0.55-1.30); POTASSIUM 3.5 mmol/L (3.5-5.1)
[2021-12-26 07:33] LABS: PHOSPHORUS 3.5 mg/dL (2.7-4.5)
[2021-12-26] MEDS: INSULIN REGULAR, HUMAN 100 UNITS in NS 99 ML IV PRN ×2 (08:17)
[2021-12-26] MEDS: INSULIN REGULAR, HUMAN 100 UNITS/ML, 10 ML VIAL (humuLIN R) SUBCUT PRN ×2 (11:03→16:42)
[2021-12-26] MEDS: INSULIN NPH 100 UNITS/ML 10 ML VIAL SUBCUT SCH ×2 (11:03→16:41)
[2021-12-26 12:09] LABS: CALCIUM 7.8 mg/dL (8.4-11.0); CREATININE 1.61 mg/dL (0.55-1.30); POTASSIUM 4.7 mmol/L (3.5-5.1)
[2021-12-26 12:12] LABS: PHOSPHORUS 3.4 mg/dL (2.7-4.5)
[2021-12-26 15:24] LABS: CALCIUM 7.7 mg/dL (8.4-11.0); CREATININE 1.24 mg/dL (0.55-1.30); POTASSIUM 3.8 mmol/L (3.5-5.1)
[2021-12-26 15:26] LABS: PHOSPHORUS 2.5 mg/dL (2.7-4.5)
[2021-12-26 19:21] LABS: CALCIUM 7.3 mg/dL (8.4-11.0); CREATININE 1.21 mg/dL (0.55-1.30); POTASSIUM 3.5 mmol/L (3.5-5.1)
[2021-12-26 19:25] LABS: PHOSPHORUS 2.3 mg/dL (2.7-4.5)
[2021-12-26] MEDS: cefTRIAXone 1 GM in D5W 50 ML IV SCH (22:24)
[2021-12-26] MEDS ORDERED: ONDANSETRON 4 MG ODT TAB PO PRN (23:00)
[2021-12-26 23:59] LABS: CREATININE 1.02 mg/dL (0.55-1.30); POTASSIUM 3.4 mmol/L (3.5-5.1)
[2021-12-26] MEDS: PANTOPRAZOLE SODIUM 40 MG/VIAL (PROTONIX) IVP SCH (23:59)
[2021-12-27] MEDS: NACL 0.9% 1,000 ML IV SCH ×4 (03:25→23:33)
[2021-12-27 04:09] LABS: CREATININE 0.86 mg/dL (0.55-1.30); POTASSIUM 3.5 mmol/L (3.5-5.1)
[2021-12-27] MEDS: INSULIN NPH 100 UNITS/ML 10 ML VIAL SUBCUT SCH ×2 (07:00→18:09)
[2021-12-27 08:09] LABS: CALCIUM 7.1 mg/dL (8.4-11.0); CREATININE 0.86 mg/dL (0.55-1.30); POTASSIUM 3.7 mmol/L (3.5-5.1)
[2021-12-27 08:12] LABS: PHOSPHORUS 1.9 mg/dL (2.7-4.5)
[2021-12-27 12:23] LABS: CALCIUM 7.5 mg/dL (8.4-11.0); CREATININE 0.91 mg/dL (0.55-1.30); POTASSIUM 3.5 mmol/L (3.5-5.1)
[2021-12-27] MEDS: INSULIN REGULAR, HUMAN 100 UNITS/ML, 10 ML VIAL (humuLIN R) SUBCUT PRN (13:45)
[2021-12-27 16:06] LABS: CALCIUM 7.3 mg/dL (8.4-11.0); CREATININE 0.81 mg/dL (0.55-1.30); POTASSIUM 3.2 mmol/L (3.5-5.1)
[2021-12-27 19:16] VITALS: BP_SYST 114
[2021-12-27 19:43] LABS: CALCIUM 7.6 mg/dL (8.4-11.0); CREATININE 0.73 mg/dL (0.55-1.30); POTASSIUM 3.3 mmol/L (3.5-5.1)
[2021-12-27] MEDS: cefTRIAXone 1 GM in D5W 50 ML IV SCH (21:20)
[2021-12-27] MEDS: PANTOPRAZOLE SODIUM 40 MG/VIAL (PROTONIX) IVP SCH (21:22)
[2021-12-28] MEDS: INSULIN REGULAR, HUMAN 100 UNITS/ML, 10 ML VIAL (humuLIN R) SUBCUT PRN ×3 (00:21→14:12)
[2021-12-28] MEDS: NACL 0.9% 1,000 ML IV SCH (06:14)
[2021-12-28] MEDS: INSULIN NPH 100 UNITS/ML 10 ML VIAL SUBCUT SCH (06:21)
[2021-12-28 07:43] LABS: BASOPHILS % (AUTO) 0.1 % (0.0-2.0); EOSINOPHILS % (AUTO) 0.7 % (0.0-4.0); HEMATOCRIT 36.2 % (36-54); HEMOGLOBIN 12.5 g/dL (14.0-18.0); LYMPHOCYTES # (AUTO) 1.2 K/uL (1.0-5.5); LYMPHOCYTES % (AUTO) 18.7 % (20.5-51.5); MEAN CORPUSCULAR HEMOGLOBIN 32 pg (27-31); MEAN CORPUSCULAR HGB CONC 35 % (32-36); MEAN CORPUSCULAR VOLUME 94 fL (79.0-98.0); MONOCYTES # (AUTO) 0.5 K/uL (0.0-1.0); MONOCYTES % (AUTO) 7.6 % (1.7-9.3); NEUTROPHILS # (AUTO) 4.5 K/uL (1.8-7.7); NEUTROPHILS % (AUTO) 72.9 % (40.0-70.0); PLATELET COUNT (AUTO) 194 K/uL (130-430); RED BLOOD CELL COUNT(AUTO) 3.87 MIL/uL (4.2-6.2); RED CELL DISTRIBUTION WIDTH 12.4 % (9.0-15.0); WHITE BLOOD COUNT (AUTO) 6.2 K/uL (4.8-10.8)
[2021-12-28 08:00] VITALS: BP_SYST 122
[2021-12-28 08:09] LABS: CALCIUM 7.9 mg/dL (8.4-11.0); CREATININE 0.77 mg/dL (0.55-1.30); POTASSIUM 3.8 mmol/L (3.5-5.1)
[2021-12-28 08:13] LABS: PHOSPHORUS 2.5 mg/dL (2.7-4.5)
[2021-12-28] MEDS: PANTOPRAZOLE SODIUM 40 MG/VIAL (PROTONIX) IVP SCH (08:44)
[2021-12-28 11:13] LABS: CREATININE 0.63 mg/dL (0.55-1.30); POTASSIUM 3.6 mmol/L (3.5-5.1)
[2021-12-28 13:37] VITALS: BP_SYST 122
[2021-12-28] MEDS ORDERED: SSNPH SQ (14:21)
== END 2021-12-28 15:35 | disposition home or self-care (01) | DRG 871 ==
LOC: SED 17:24 → SIC 20:38 → STU 12-26 20:22
PROVIDERS: ADMIT Family Medicine; ATTEND Family Medicine
DX: A41.9 Sepsis, unspecified organism (principal); E10.10 Type 1 diabetes mellitus with ketoacidosis without coma; E87.1 Hypo-osmolality and hyponatremia; N17.9 Acute kidney failure, unspecified; I10 Essential (primary) hypertension; E86.0 Dehydration; D72.829 Elevated white blood cell count, unspecified; Z20.822 Contact with and (suspected) exposure to COVID-19; T38.3X6A Underdosing of insulin and oral hypoglycemic [antidiabetic] drugs, initial encounter; Z79.4 Long term (current) use of insulin; Z83.3 Family history of diabetes mellitus; Z91.14 Patient's other noncompliance with medication regimen; Z91.19 Patient's noncompliance with other medical treatment and regimen
CPT/HCPCS: 36415; 36600; 71045; 80048; 80053; 81000; 82009; 82803-TC; 82962; 83735; 84100; 84484; 85025; 87040; 87081; 87086; 96361; 96365; 96375; 99291; 99292; C9113; G0378; J0696; J1815; J3480; J7030; J7060; Q0162

== ENCOUNTER 2022-05-08 06:21 | Emergency (ER) | payer MEDICAID ==
[~2022-05-08] VITALS: Ht 172.7 cm; Wt 72.6 kg
[~2022-05-08 06:21] MED LIST changes: -INSU100I20 SQ; -INSU100V9 SQ; +LEVO-62 PO; -LEVO500T90 PO; +SSNPH SQ
[2022-05-08 06:29] VITALS: BP_SYST 125
[2022-05-08 07:35] LABS: HEMOGLOBIN 13.4 g/dL (14.0-18.0)
[2022-05-08 07:43] LABS: BASOPHILS % (AUTO) 0.7 % (0.0-2.0); EOSINOPHILS # (AUTO) 0.3 K/uL (0.0-0.4); EOSINOPHILS % (AUTO) 5.4 % (0.0-4.0); HEMATOCRIT 38.3 % (36-54); LYMPHOCYTES # (AUTO) 1.6 K/uL (1.0-5.5); LYMPHOCYTES % (AUTO) 29.3 % (20.5-51.5); MEAN CORPUSCULAR HEMOGLOBIN 32 pg (27-31); MEAN CORPUSCULAR HGB CONC 35 % (32-36); MEAN CORPUSCULAR VOLUME 90 fL (79.0-98.0); MONOCYTES # (AUTO) 0.4 K/uL (0.0-1.0); NEUTROPHILS # (AUTO) 3.1 K/uL (1.8-7.7); NEUTROPHILS % (AUTO) 56.6 % (40.0-70.0); PLATELET COUNT (AUTO) 308 K/uL (130-430); RED BLOOD CELL COUNT(AUTO) 4.24 MIL/uL (4.2-6.2); RED CELL DISTRIBUTION WIDTH 12.8 % (9.0-15.0); WHITE BLOOD COUNT (AUTO) 5.5 K/uL (4.8-10.8)
[2022-05-08 08:36] LABS: ANION GAP 8 (5-15); CALCIUM 8.5 mg/dL (8.4-11.0); CHLORIDE 99 mmol/L (98-107); CREATININE 1.25 mg/dL (0.55-1.30); POTASSIUM 4.7 mmol/L (3.5-5.1); UREA NITROGEN, BLOOD 43 mg/dL (8-21)
[2022-05-08] MEDS ORDERED: NEOM28.37 TP (08:36)
[2022-05-08 08:39] LABS: ALANINE AMINOTRANSFERASE 19 U/L (12-78); ALBUMIN 3.2 g/dL (3.4-4.8); AMYLASE 38 U/L (0-100); ASPARTATE AMINOTRANSFERASE 11 U/L (10-37); LIPASE 72 U/L (73-393); TOTAL BILIRUBIN 0.1 mg/dL (0.0-1.0)
[2022-05-08 08:44] LABS: GFR AFRICAN AMERICAN 79 mL/min (>90)
[2022-05-08 08:45] LABS: GLUCOSE 662 mg/dL (70-99)
[2022-05-08] MEDS ORDERED: INSULIN REGULAR, HUMAN 100 UNITS/ML, 3 ML VIAL SUBCUT ONE (09:00)
[2022-05-08 09:02] LABS: ACETONE, SERUM NEGATIVE (NEGATIVE)
[2022-05-08] MEDS ORDERED: INSULIN REGULAR, HUMAN 10 UNITS/0.1 ML, 3 ML VIAL ONE (09:04)
[2022-05-08 09:55] VITALS: BP_SYST 120
== END 2022-05-08 09:58 | disposition home or self-care (01) ==
LOC: SED 06:21
DX: E11.65 Type 2 diabetes mellitus with hyperglycemia (principal); R73.9 Hyperglycemia, unspecified; K21.9 Gastro-esophageal reflux disease without esophagitis; I10 Essential (primary) hypertension; R53.1 Weakness; R35.0 Frequency of micturition; Z79.4 Long term (current) use of insulin; Z79.899 Other long term (current) drug therapy
CPT/HCPCS: 36415; 80053; 82009; 82150; 83605; 83690; 85025; 96372; 99283; J1815